=== PATIENT | male | born 1990 | race African-American/Black ===

== ENCOUNTER 2017-06-06 18:43 | Inpatient (IN) | payer OTHER ==
[~2017-06-06] VITALS: Ht 190.5 cm; Wt 77.6 kg
[~2017-06-06 18:43] MED LIST: AMOXICILLIN500 MG PO; ATARAX,VISTARIL50 MG PO; CARBIDOPA/LEVOD1 TA1 PO; HYDROCODONE BIT1 T11 PO; ZOFRAN 4 MG ED2 TAB PO
[2017-06-06 18:58] VITALS: BP 132/78
[2017-06-06 19:15] LABS: BASO % 0.3 % (0.0-1.0); EOS # 0.1 10*3/uL (0.0-0.4); HEMATOCRIT 40.1 % (42.0-52.0); HEMOGLOBIN 13.2 g/dl (14.0-18.0); LYMPH # 2.3 10*3/uL (1.3-4.4); LYMPH % 34.3 % (27.0-41.0); MEAN CELL VOLUME 88.7 fl (80.0-94.0); MEAN CORPUSCULAR HGB 29.2 pg (27.0-31.0); MEAN CORPUSCULAR HGB CONC 32.9 g/dl (33.0-37.0); MEAN PLATELET VOLUME 9.7 fl (9.6-12.3); MONO # 0.5 10*3/uL (0.1-1.0); MONO % 7.2 % (3.0-9.0); NEUT # 3.9 10*3/uL (2.3-7.9); NEUT % 56.9 % (47.0-73.0); PLATELET COUNT AUTOMATED 278 10*3/uL (130-400); RED BLOOD COUNT 4.52 10*6/uL (4.50-5.90); RED CELL DISTRI WIDTH 12.9 % (0-14.5); WHITE BLOOD COUNT 6.8 10*3/uL (4.8-10.8)
[2017-06-06 19:32] LABS: ACETAMINOPHEN (TYLENOL) < 2.0 ug/ml (10-30); ALBUMIN 3.5 gm/dl (3.1-4.5); ALKALINE PHOSPHATASE 75 U/L (45-117); BUN 9 mg/dl (7-24); CHLORIDE 108 mmol/L (98-107); CREATININE 0.75 mg/dL (0.70-1.30); ETHYL ALCOHOL < 3.0 mg/dl (<3); SGOT/AST 28 IU/L (3-35); SGPT/ALT 35 U/L (12-78); SODIUM 143 mmol/L (136-145); TOTAL PROTEIN 7.6 gm/dL (6.4-8.2)
--- NOTE | 2017-06-06 20:08 | NUR ---
A 26, admitted to , under the services of RAMAN Byrne DO with a diagnosis of OPIATE ABUSE/WITHDRAWL. Chief complaint is NAUSEA/BODY ACHES. Patient arrived via ambulatory from ER. Monitor applied. Initial assessment completed. Vital signs taken and recorded. RAMAN BYRNE DO notified of admission to the unit. Orders received. See assessment for past medical history, medications and allergies. Patient and/or family oriented to unit. [facility] visitation policy reviewed. Clothing/patient valuable form completed. NILAY RICHMOND
[2017-06-06 20:09] LABS: URINE AMPHETAMINES > 1000 (1000ng/ml); URINE BARBITURATES < 200 (200ng/ml); URINE BENZODIAZEPINES < 200 (200ng/ml); URINE CANNABINOIDS (THC) > 50 (50ng/ml); URINE COCAINE < 300 (300ng/ml); URINE METHADONE < 300 (300ng/ml); URINE OPIATES < 300 (300ng/ml)
[2017-06-06 20:20] LABS: BILIRUBIN NEGATIVE (NEGATIVE); BLOOD NEGATIVE (NEGATIVE); CLARITY CLEAR (CLEAR); COLOR YELLOW (YELLOW); GLUCOSE NEGATIVE (NEGATIVE); KETONE NEGATIVE (NEGATIVE); LEUKO ESTERASE NEGATIVE (NEGATIVE); NITRITE NEGATIVE (NEGATIVE); PH 7.5 (5.0-9.0); URINE PHENCYCLIDINE < 25 (25ng/ml)
[2017-06-06 20:21] VITALS: BP 114/67
[2017-06-06 20:35] LABS: BACTERIA 1+; EPITHELIAL CELLS 0-2; WBC 0-2 wbc/hpf (0-5)
[2017-06-06 21:21] VITALS: BP 114/67
[2017-06-07] VITALS: BP 117/70
[2017-06-07 04:00] VITALS: BP 109/65
[2017-06-07 08:00] VITALS: BP 124/64
--- NOTE | 2017-06-07 14:32 | NUR ---
PT REFUSED SUBUTEX AND PRN MEDS HE PREVIOUSLY REQUESTED. WASTED IN PYXIS WITH LING DUNLAP RN. ALL PUT IN SHARPS CONTAINER.
[2017-06-07 16:00] VITALS: BP 113/61
--- NOTE | 2017-06-07 16:14 | NUR ---
PT COMPLAINS OF OVERALL WITHDRAWL SYMPTOMS, ACHE, AND NAUSEA. PRN GIVEN. SEE MAR
[2017-06-07 20:00] VITALS: BP 105/56
--- NOTE | 2017-06-07 20:12 | NUR ---
PT C/O MUSCLE ACHES AND STOMACH CRAMPS. PT ADVISED OF TIMES WHEN PRN MEDS ARE AVAILABLE. MEDICATED WITH PRN IBUPROFEN. PT RESTING QUIETLY IN BED WATCHING VIDEOS ON LAPTOP. ADVISED PT TO CALL IF HE NEEDS ANYTHING. PT ACKNOWLEDGES.
--- NOTE | 2017-06-07 23:00 | NUR ---
PT RESTING QUIETLY IN BED. PRN MEDS EFFECTIVE.
[2017-06-08] VITALS: BP 118/64
--- NOTE | 2017-06-08 03:14 | NUR ---
24 HR chart check completed.
[2017-06-08 08:00] VITALS: BP 114/66
--- NOTE | 2017-06-08 13:50 | NUR ---
PT MEDICATED WITH BENTYL AND ZOFRAN AT THIS TIME FOR C/O STOMACH DISCOMFORT.
--- NOTE | 2017-06-08 15:00 | NUR ---
PRN MEDS EFFECTIVE PER PT.
[2017-06-08 16:00] VITALS: BP 113/63
[2017-06-08 20:00] VITALS: BP 109/68
--- NOTE | 2017-06-08 20:02 | NUR ---
Medicated with robaxin and requip per prn order for c/o muscle aches and restless legs. Pt is requesting motrin as well, spoke with pharmacy regarding this as it is empty in [facility].
--- NOTE | 2017-06-08 20:10 | NUR ---
Medicated with motrin po per prn order for c/o generalized discomfort and muscle pain. Nicoderm patch changed as well.
--- NOTE | 2017-06-08 21:00 | NUR ---
States medication given earlier effective.
[2017-06-09] VITALS: BP 97/53
[2017-06-09 07:27] LABS: BASO % 0.5 % (0.0-1.0); EOS # 0.2 10*3/uL (0.0-0.4); EOS % 4.4 % (1.0-4.0); HEMATOCRIT 40.6 % (42.0-52.0); HEMOGLOBIN 13.3 g/dl (14.0-18.0); LYMPH # 1.9 10*3/uL (1.3-4.4); LYMPH % 44.9 % (27.0-41.0); MEAN CORPUSCULAR HGB 29.5 pg (27.0-31.0); MEAN CORPUSCULAR HGB CONC 32.8 g/dl (33.0-37.0); MONO # 0.5 10*3/uL (0.1-1.0); MONO % 12.6 % (3.0-9.0); NEUT # 1.6 10*3/uL (2.3-7.9); NEUT % 37.4 % (47.0-73.0); PLATELET COUNT AUTOMATED 264 10*3/uL (130-400); RED BLOOD COUNT 4.51 10*6/uL (4.50-5.90); RED CELL DISTRI WIDTH 12.9 % (0-14.5); WHITE BLOOD COUNT 4.3 10*3/uL (4.8-10.8)
[2017-06-09 08:00] VITALS: BP 110/50
--- NOTE | 2017-06-09 10:03 | NUR ---
PATIENT MEDICATED WITH VISTARIL, ROBAXIN, AND NICODERM PATCH FOR COMPLAINTS OF AGITATION, MUSCLE ACHES, & NICOTINE WITHDRAWAL. WILL MONITOR FOR EFFECTIVENESS.
--- NOTE | 2017-06-09 14:18 | NUR ---
Discharge instructions reviewed with patient/family. Patient receptive and verbalizes understanding. Follow-up care arranged. Written instructions given to patient/family. LUCINA VIEIRA
== END 2017-06-09 14:18 | disposition home or self-care (01) | DRG 897 ==
LOC: ED 18:43 → EDHOLD 19:12 → 4E 19:12
PROVIDERS: Nurse Practitioner Family; Obstetrics & Gynecology; ADMIT Internal Medicine
DX: F11.23 Opioid dependence with withdrawal (principal); E87.8 Other disorders of electrolyte and fluid balance, not elsewhere classified; F32.89 Other specified depressive episodes; F12.10 Cannabis abuse, uncomplicated; G25.81 Restless legs syndrome; R10.9 Unspecified abdominal pain; R03.0 Elevated blood-pressure reading, without diagnosis of hypertension; R73.9 Hyperglycemia, unspecified; R82.71 Bacteriuria; F41.9 Anxiety disorder, unspecified; F15.10 Other stimulant abuse, uncomplicated; D64.9 Anemia, unspecified; F17.210 Nicotine dependence, cigarettes, uncomplicated; Z71.6 Tobacco abuse counseling; Z82.49 Family history of ischemic heart disease and other diseases of the circulatory system; Z81.8 Family history of other mental and behavioral disorders; Z83.49 Family history of other endocrine, nutritional and metabolic diseases

== ENCOUNTER 2017-07-21 22:47 | Inpatient (IN) | payer OTHER ==
[~2017-07-21] VITALS: Ht 193 cm; Wt 77.1 kg
[2017-07-21 00:15] VITALS: BP 117/66
[2017-07-21 22:53] VITALS: BP 117/66
[2017-07-21 23:36] LABS: HEMOGLOBIN 11.6 g/dl (14.0-18.0); RED BLOOD COUNT 3.97 10*6/uL (4.50-5.90); WHITE BLOOD COUNT 8.1 10*3/uL (4.8-10.8)
[2017-07-21 23:37] LABS: BASO % 0.4 % (0.0-1.0); EOS # 0.1 10*3/uL (0.0-0.4); EOS % 1.2 % (1.0-4.0); HEMATOCRIT 35.6 % (42.0-52.0); LYMPH # 2.2 10*3/uL (1.3-4.4); LYMPH % 26.5 % (27.0-41.0); MEAN CELL VOLUME 89.7 fl (80.0-94.0); MEAN CORPUSCULAR HGB 29.2 pg (27.0-31.0); MEAN CORPUSCULAR HGB CONC 32.6 g/dl (33.0-37.0); MEAN PLATELET VOLUME 9.9 fl (9.6-12.3); MONO # 0.8 10*3/uL (0.1-1.0); MONO % 9.4 % (3.0-9.0); NEUT % 61.6 % (47.0-73.0); PLATELET COUNT AUTOMATED 285 10*3/uL (130-400); RED CELL DISTRI WIDTH 12.8 % (0-14.5)
[2017-07-21 23:40] LABS: ALBUMIN 2.9 gm/dl (3.1-4.5); ALKALINE PHOSPHATASE 75 U/L (45-117); BUN 5 mg/dl (7-24); CHLORIDE 104 mmol/L (98-107); CREATININE 1.06 mg/dL (0.70-1.30); POTASSIUM 4.4 mmol/L (3.5-5.1); SGOT/AST 29 IU/L (3-35); SGPT/ALT 38 U/L (12-78); SODIUM 142 mmol/L (136-145); TOTAL PROTEIN 6.7 gm/dL (6.4-8.2)
[2017-07-21 23:47] LABS: URINE AMPHETAMINES < 1000 (1000ng/ml); URINE BARBITURATES < 200 (200ng/ml); URINE BENZODIAZEPINES < 200 (200ng/ml); URINE CANNABINOIDS (THC) > 50 (50ng/ml); URINE COCAINE < 300 (300ng/ml); URINE METHADONE < 300 (300ng/ml); URINE OPIATES < 300 (300ng/ml); URINE PHENCYCLIDINE < 25 (25ng/ml)
[2017-07-22 08:00] VITALS: BP 120/67
[2017-07-22 12:00] VITALS: BP 108/58
[2017-07-22 16:00] VITALS: BP 110/67
[2017-07-22 20:00] VITALS: BP 108/53
[2017-07-23] VITALS: BP 99/60
[2017-07-23 08:00] VITALS: BP 101/78
[2017-07-23 12:00] VITALS: BP 110/75
[2017-07-23 16:00] VITALS: BP 116/79
[2017-07-23 20:00] VITALS: BP 117/60
[2017-07-24] VITALS: BP 109/66
[2017-07-24 06:31] LABS: BASO % 0.3 % (0.0-1.0); EOS # 0.1 10*3/uL (0.0-0.4); EOS % 1.4 % (1.0-4.0); HEMATOCRIT 41.5 % (42.0-52.0); HEMOGLOBIN 13.8 g/dl (14.0-18.0); LYMPH # 1.7 10*3/uL (1.3-4.4); LYMPH % 21.2 % (27.0-41.0); MEAN CELL VOLUME 88.5 fl (80.0-94.0); MEAN CORPUSCULAR HGB 29.4 pg (27.0-31.0); MEAN CORPUSCULAR HGB CONC 33.3 g/dl (33.0-37.0); MEAN PLATELET VOLUME 9.7 fl (9.6-12.3); MONO # 0.8 10*3/uL (0.1-1.0); MONO % 10.5 % (3.0-9.0); NEUT # 5.2 10*3/uL (2.3-7.9); NEUT % 66.3 % (47.0-73.0); PLATELET COUNT AUTOMATED 341 10*3/uL (130-400); RED BLOOD COUNT 4.69 10*6/uL (4.50-5.90); RED CELL DISTRI WIDTH 13.2 % (0-14.5); WHITE BLOOD COUNT 7.8 10*3/uL (4.8-10.8)
[2017-07-24 06:58] LABS: CREATININE 0.76 mg/dL (0.70-1.30)
[2017-07-24 08:00] VITALS: BP 122/76
[2017-07-24 12:00] VITALS: BP 110/76
[2017-07-24 16:00] VITALS: BP 120/66
[2017-07-24 20:00] VITALS: BP 110/76
[2017-07-25] VITALS: BP 135/72
[2017-07-25 08:00] VITALS: BP 112/63
== END 2017-07-25 11:00 | DRG 897 ==
LOC: ED 22:47 → 4E 23:22 → EDHOLD 23:22 → 4E 23:40
PROVIDERS: Internal Medicine; Physician Assistant
DX: F11.23 Opioid dependence with withdrawal (principal); E44.0 Moderate protein-calorie malnutrition; F32.9 Major depressive disorder, single episode, unspecified; F17.210 Nicotine dependence, cigarettes, uncomplicated; G25.81 Restless legs syndrome; F41.9 Anxiety disorder, unspecified; R73.9 Hyperglycemia, unspecified; Z82.49 Family history of ischemic heart disease and other diseases of the circulatory system; Z68.22 Body mass index [BMI] 22.0-22.9, adult

== ENCOUNTER 2020-04-04 16:26 | Inpatient (IN) | payer OTHER ==
[~2020-04-04] VITALS: Ht 193 cm; Wt 81.2 kg
[2020-04-04] MEDS ORDERED: BIKTARVY 50-201 EACH PO (17:43)
[2020-04-04 18:33] LABS: BASO % 0.4 % (0.0-1.0); EOS # 0.2 10*3/uL (0.0-0.4); EOS % 2.9 % (1.0-4.0); HEMATOCRIT 38.4 % (42.0-52.0); LYMPH # 2.9 10*3/uL (1.3-4.4); LYMPH % 42.2 % (27.0-41.0); MEAN CELL VOLUME 91.4 fl (80.0-94.0); MEAN CORPUSCULAR HGB CONC 31.8 g/dl (33.0-37.0); MEAN PLATELET VOLUME 9.6 fl (9.6-12.3); MONO # 0.6 10*3/uL (0.1-1.0); MONO % 8.9 % (3.0-9.0); NEUT # 3.2 10*3/uL (2.3-7.9); NEUT % 45.5 % (47.0-73.0); PLATELET COUNT AUTOMATED 368 10*3/uL (130-400); RED CELL DISTRI WIDTH 12.6 % (0-14.5)
[2020-04-04 18:52] LABS: ALBUMIN 3.7 gm/dl (3.1-4.5); ALKALINE PHOSPHATASE 85 U/L (45-117); BUN 6 mg/dl (7-24); CHLORIDE 105 mmol/L (98-107); CREATININE 0.85 mg/dL (0.70-1.30); POTASSIUM 3.8 mmol/L (3.5-5.1); SGOT/AST 27 IU/L (3-35); SGPT/ALT 35 U/L (12-78); SODIUM 141 mmol/L (136-145)
[2020-04-04 18:54] LABS: ETHYL ALCOHOL < 3.0 mg/dl (<3)
[2020-04-04 19:20] LABS: BILIRUBIN NEGATIVE; BLOOD NEGATIVE (NEGATIVE); CLARITY CLEAR (CLEAR); COLOR YELLOW (YELLOW); GLUCOSE NEGATIVE; KETONE NEGATIVE; LEUKO ESTERASE NEGATIVE (NEGATIVE); NITRITE NEGATIVE (NEGATIVE); PH 5.5 (4.5-8.0); SPECIFIC GRAVITY 1.025 (1.001-1.030)
[2020-04-04 19:36] LABS: URINE AMPHETAMINES > 1000 (1000ng/ml); URINE BARBITURATES < 200 (200ng/ml); URINE BENZODIAZEPINES < 200 (200ng/ml); URINE CANNABINOIDS (THC) > 50 (50ng/ml); URINE COCAINE < 300 (300ng/ml); URINE METHADONE < 300 (300ng/ml); URINE OPIATES > 300 (300ng/ml)
[2020-04-04 19:38] LABS: BACTERIA TRACE; EPITHELIAL CELLS 0-2; RBC 0-2 rbc/hpf (0-2); WBC 0-2 wbc/hpf (0-5)
[2020-04-04 19:49] LABS: URINE PHENCYCLIDINE < 25 (25ng/ml)
[2020-04-04 20:00] VITALS: BP 138/64
[2020-04-05] VITALS: BP 109/58
[2020-04-05 08:00] VITALS: BP 110/50
[2020-04-05 16:00] VITALS: BP 107/55
[2020-04-05 20:00] VITALS: BP 125/60
[2020-04-06] VITALS: BP 121/59
[2020-04-06 08:00] VITALS: BP 131/64
== END 2020-04-06 11:20 | disposition left against medical advice (07) | DRG 770 ==
LOC: 4E 16:26
PROVIDERS: Family Medicine; ADMIT Family Medicine; ATTEND Family Medicine
DX: F11.23 Opioid dependence with withdrawal (principal); F15.10 Other stimulant abuse, uncomplicated; R00.1 Bradycardia, unspecified; F17.210 Nicotine dependence, cigarettes, uncomplicated; R10.9 Unspecified abdominal pain; F12.10 Cannabis abuse, uncomplicated; B19.20 Unspecified viral hepatitis C without hepatic coma; Z53.29 Procedure and treatment not carried out because of patient's decision for other reasons; F32.9 Major depressive disorder, single episode, unspecified; F41.9 Anxiety disorder, unspecified; Z82.49 Family history of ischemic heart disease and other diseases of the circulatory system; Z81.8 Family history of other mental and behavioral disorders; Z83.49 Family history of other endocrine, nutritional and metabolic diseases; Z82.69 Family history of other diseases of the musculoskeletal system and connective tissue; Z91.040 Latex allergy status; Z88.0 Allergy status to penicillin; Z71.6 Tobacco abuse counseling